=== PATIENT | female | born 1960 | race Caucasian/White ===

== ENCOUNTER 2016-07-05 21:15 | Emergency (ER) | payer BC ==
[~2016-07-05] VITALS: Ht 160 cm; Wt 113.6 kg
[2016-07-05] MEDS ORDERED: SODIUM CHLORIDE FLUSH 3 ML SYR IV PRN (21:20)
[2016-07-05] MEDS ORDERED: SODIUM CHLORIDE 250 ML IV PRN (21:20)
[2016-07-05] MEDS ORDERED: ONDANSETRON 2 MG/ML (Z0FRAN) 2 ML VIAL IV ONE (21:20)
[2016-07-05] MEDS: NITROGLYCERIN SUBLINGUAL 0.4 MG (NITROQUICK) TABLET SL PRN ×3 (21:33→21:45)
[2016-07-05 21:36] LABS: BASOPHILS % (AUTO) 0 % (0-2); EOSINOPHILS # (AUTO) 0.2 10^3uL; EOSINOPHILS % (AUTO) 1 % (0-4); LYMPHOCYTES # (AUTO) 4.9 X10^3; MEAN CORPUSCULAR HGB CONC 34.5 g/dL (31.0-37.0); MEAN CORPUSCULAR VOLUME 90 FL (80-100); MEAN PLATELET VOLUME 10.2 FL (6.0-9.5); MONOCYTES % (AUTO) 8 % (3-11); NEUTROPHILS # (AUTO) 6.2 X10^3; NEUTROPHILS % (AUTO) 50 % (51-67); PLATELET COUNT 202 10^3uL (150-450); WHITE BLOOD COUNT 12.32 10^3uL (4.0-11.0)
[2016-07-05 21:45] LABS: ALBUMIN 4.5 g/dL (3.4-5.0); ALKALINE PHOSPHATASE 90 U/L (38-126); ANION GAP 17.3 MEQ/L (3-15); BUN/CREATININE RATIO 25 (10-20); CALCULATED IONIZED CALCIUM 4.1 mg/dL (3.8-4.6); CREATINE KINASE 131 U/L (30-135); TOTAL PROTEIN 7.7 g/dL (6.4-8.5)
[2016-07-05] MEDS: morphine INJ 4 MG/ML 1 ML SYRINGE IV PRN ×2 (21:54→22:18)
[2016-07-05] MEDS: SODIUM CHLORIDE FLUSH 10 ML SYR IV PRN ×2 (21:54→22:18)
--- NOTE | 2016-07-05 22:14 | NUR ---
Patient reports her pain to back is now 0/10, but has pressure to chest, rating a 2/10. Will admin. more morphine.
[2016-07-05 23:18] VITALS: BP 121/55
--- NOTE | 2016-07-06 07:17 | Diagnostic Imaging Report ---
INDICATION: 55-year-old female with chest pain. COMPARISONS: 12/14/2015. FINDINGS: Single view of the chest is provided. The film is slightly underpenetrated. Cardiac contour is normal. Background chronic parenchymal changes are present. No significant consolidations are seen. Visualized soft tissues and bony thorax are grossly normal. IMPRESSION: Some chronic background parenchymal changes seen in this underpenetrated film but no definite acute consolidations are present. The focal density in the right upper lobe seen on the previous study is not evident on today's study. Dictated by: Dictated on workstation # [id number]
== END 2016-07-05 23:42 | disposition short-term general hospital (02) ==
LOC: ED 21:16
DX: R07.2 Precordial pain (principal); I25.2 Old myocardial infarction; I11.9 Hypertensive heart disease without heart failure; F17.210 Nicotine dependence, cigarettes, uncomplicated
CPT/HCPCS: 36415; 71010; 80053; 82550; 82553; 84484; 85025; 85610; 85730; 93005; 96374; 99285; J2270; 93010

== ENCOUNTER → 2016-07-05 | Outpatient (CLI) | payer BC ==
[~2016-07-05] MED LIST: ACET-168 PO; AMOX1TAB12 PO; ASPI81TA55 PO; ATOR20TA PO; ATOR80TA PO; BUSP15TA55 PO; CALC600T12 PO; CEPH-507 PO; CHRO1TAB7 PO; CTLP20T PO; LISI5TAB14 PO; METF500T4 PO; METO25TA60 PO; MULT-141 PO; NAPR500T3 PO; NEOM10DR9 RIGHT EAR; OMEP20CA12 PO; PHN100C PO; PRED20TA PO; SULF1TAB35 PO; [UNRECOGNIZED DRUG - OTHER] PO
== END ==
LOC: EMS 23:40
PROVIDERS: ATTEND Emergency Medicine
DX: I24.9 Acute ischemic heart disease, unspecified (principal)

== ENCOUNTER → 2016-07-12 | Outpatient (CLI) | payer BC ==
--- NOTE | 2016-07-12 09:41 | Diagnostic Imaging Report ---
PROCEDURE: US abdomen complete. TECHNIQUE: Multiple real-time grayscale images were obtained over the abdomen in various projections. INDICATION: Epigastric pain. FINDINGS: The study is quite limited due to large body habitus. There is increased echogenicity of the liver consistent with fatty infiltration. There is mild hepatomegaly with long axis measuring 19 cm at the mid hepatic line. No focal liver lesions are seen. Bile ducts are not dilated. Gallbladder shows no gallstones or wall thickening. The common duct is not visualized. Pancreas is visualized. Spleen appears normal. The aorta and vena cava are normal. The kidneys are symmetrical in size and shape with no obstruction, masses or calculi. There is good preservation of the renal cortex. There is no ascites. IMPRESSION: 1. Limited study due to large body habitus. 2. Diffuse fatty liver changes consistent with hepatic steatosis and hepatomegaly. 3. The gallbladder does not appear distended and no gallstones or gallbladder wall thickening demonstrated. Dictated by: Dictated on workstation # [id number]
== END ==
LOC: RAD 08:03
PROVIDERS: ATTEND Family Medicine
DX: R10.13 Epigastric pain (principal); K76.0 Fatty (change of) liver, not elsewhere classified; R16.0 Hepatomegaly, not elsewhere classified
CPT/HCPCS: 76700

== ENCOUNTER → 2016-07-19 | Outpatient (CLI) | payer BC ==
--- NOTE | 2016-07-19 10:59 | Diagnostic Imaging Report ---
INDICATION: Epigastric pain. COMPARISON: Right upper quadrant ultrasound of 07/12/2016 Tc-99m Choletec 8.7 mCi IV Patient consumed one can of ensure drink for gallbladder ejection fraction assessment. FINDINGS: The upper abdomen was imaged for 60 minutes with the gamma camera. There is prompt homogeneous uptake of radiopharmaceutical by the liver. There is activity in the common duct and gallbladder by 15 minutes. Small bowel activity is seen by 20 minutes. After 60 minutes, the patient received oral ensure. After 30 minutes, the gallbladder ejection fraction was calculated to be 69% which is normal. IMPRESSION: Normal hepatobiliary study with GBEF of 69%. Dictated by: Dictated on workstation # [id number]
== END ==
LOC: RAD 08:01
PROVIDERS: ATTEND Family Medicine
DX: R10.13 Epigastric pain (principal)
CPT/HCPCS: 78226; A9537; J2805